=== PATIENT | female | born 1960 | race Caucasian/White ===

== ENCOUNTER 2021-05-28 10:20 | Outpatient (CLI) | payer OTHER, SELFPAY ==
--- NOTE | ~2021-05-28 | XR_ITS ---
EXAMINATION: XR lg joint inject/asp w image DATE: 05/28/2021 11:17 INDICATION: Unilateral primary osteoarthritis, left hip. TECHNIQUE: A time-out was performed to verify the patient's name, date of , and procedure to b e performed. The procedure including the risks, benefits, and alternatives was discussed with the pat ient. Risks discussed included bleeding and infection. The patient understood the risks and agreed to proceed. The skin overlying the left hip joint was prepped and draped in usual sterile fashion. An esthetic was administered with 1% lidocaine subcutaneously. A 22 G needle was advanced under fluoros copic guidance into the joint. Injection of 1 mL of Omnipaque 240 confirmed intra-articular position of the needle. Subsequently, injectate consisting of 5 mL 1% lidocaine and 2 mL 10 mg/mL Kenalog wa s instilled. The needle was removed and the entry site was cleaned and dressed. There were no immed iate complications. Fluoroscopy exposure time was 0.1 minutes. The total number of images was 2. FINDINGS: Real-time fluoroscopy demonstrates the needle in the left hip joint. Patient's pain prior t o procedure:01/12. Patient's pain following the procedure: 10/15. IMPRESSION: 1. Fluoroscopy guided left hip joint injection of local anesthetic and steroid with decrease in the p atient's presenting pain. Reviewed, dictated and finalized at location A. IMPRESSION: 1. Fluoroscopy guided left hip joint injection of local anesthetic and steroid with decrease in the patient's presenting pain.
== END 2021-05-28 10:21 | disposition home or self-care (01) ==
LOC: ANHIMG 10:26
PROVIDERS: PCP Family Medicine; Visit Provider Orthopaedic Surgery
DX: M16.12 Unilateral primary osteoarthritis, left hip (principal)
CPT/HCPCS: 20610; 77002; J3301; Q9966

== ENCOUNTER 2021-08-25 08:15 | Outpatient (RCR) | payer OTHER, SELFPAY ==
--- NOTE | 2021-06-01 09:42 | PTOPEVAL ---
PHYSICAL THERAPY EVALUATION AND PLAN OF CARE Thank you for referring Denisha Heck to [facility] [place].? The patient is scheduled to be seen for therapy? 1-2x/week for 4-6 weeks. Please review, sign, date and return this plan of care KEYONNA. I agree with and certify that the following plan of care is medically necessary. Referring Physician Date Attending Provider: Leonard Mercer MD Evaluation Evaluation Information Problem Diagnosis low back pain Onset years Subjective Information Denisha reports that she does Query Text:As Reported By Patient/ not feel like she has back Family pain at all, but that she feels pain in each hip (points to groin) and it will go down each leg - started on the left and has progressed to the right. Has a general achiness in both thighs but also has a sharp pain that goes down the leg that prevents her from putting weight on the left leg. Sleeping is the worst. Heating pad can be somewhat helpful. Self Report Pain Assessment Bilateral Hip(s) Reported Pain Level 5 Pain Description Aching,Sharp Pain Aggravating Factors Walking,Weight Bearing/ Standing Other Pain Aggravating Factors stretching the hips Pain Score Pain Score 5: Self Report Interventions Used Interventions Used By Clinicians Exercise Pain Relief Interventions Used By Heat,Medication Patient Cervical and Lumbar ROM Lumbar ROM Lumbar Flexion Active Floor Query Text:Hands to: Lumbar Extension (0-40) 12 Query Text:Active in Degrees Lumbar Comments right hip pulls with extension and left rotation Lower Extremity Range of Motion Hip Range of Motion Bilateral Hip Flexion Range of Motion - Passive 100 Hip Medial Rotation - Passive 10 Lower Extremity Muscle Strength Testing Hip Strength Bilateral Hip Flexion Strength 4 Good Hip Medial Rotation Strength 4 Good Hip Lateral Rotation Strength 4 Good Hip Strength Comments left hip abduction: 3/5, extension: 3+/5 right hip abduction: 4+/5, extension: 4-/5 Knee Strength Bilateral Knee Flexion Strength 4+ Good + Knee Extension Strength 4 Good Knee Strength Comments able to walk on heels and toes without difficulty a
--- NOTE | 2021-07-06 08:56 | PTOPEVAL ---
PHYSICAL THERAPY PROGRESS REPORT Thank you for referring Denisha Heck to [facility] [place].? The patient is scheduled to be seen for therapy? 2x/week for 4weeks. Please review, sign, date and return this plan of care KEYONNA. I agree with and certify that the following plan of care is medically necessary. Referring Physician Date Attending Provider: Leonard Mercer MD Progress Diagnosis low back pain Onset years Subjective Information Denisha reports that overall Query Text:As Reported By Patient/ things are much improved with Family continuing to have good days and bad days. Today it is sore along the lateral side of the left thigh. States that there is a definite decrease in freqeuncy of pain. Achiness is much better. The more streaking pain will not let up but it is less frequent. Self Report Pain Assessment Bilateral Hip(s) Reported Pain Level 4 Pain Description Aching Pain Aggravating Factors Walking,Weight Bearing/ Standing Other Pain Aggravating Factors stretching the hips Pain Score Pain Score 4: Self Report Additional Pain Score Comments anterior hip pain into the groin and adductors Interventions Used Interventions Used By Clinicians Electrical Stimulation,Heat, Manual Therapy Techniques Pain Relief Interventions Used By Heat,Medication Patient Cervical and Lumbar ROM Lumbar ROM Lumbar Flexion Active Floor Query Text:Hands to: Lumbar Extension (0-40) 12 Query Text:Active in Degrees Lumbar Comments soreness in left SIJ Lower Extremity Muscle Strength Testing Hip Strength Bilateral Hip Flexion Strength 4+ Good + Hip Medial Rotation Strength 4 Good Hip Lateral Rotation Strength 4 Good Hip Strength Comments left hip abduction: 3/5, extension: 3+/5 right hip abduction: 4+/5, extension: 4-/5 Knee Strength Bilateral Knee Flexion Strength 4+ Good + Knee Extension Strength 4+ Good + Muscle Length Testing Muscle Length Testing Piriformis w/Hip Flexion >90 Degrees (R) Moderate Tightness,(L) Moderate Tightness Left Hamstring Length -10 Query Text:(90 - 90 Position) Right Hamstring Length -15 Query Text:(90 - 90 Position) Right Prone Knee Flexor Muscle Length ( 110 degrees)
--- NOTE | 2021-08-13 09:33 | PTOPEVAL ---
PHYSICAL THERAPY PROGRESS REPORT Thank you for referring Denisha Heck to [facility] [place].? The patient is scheduled to be seen for therapy? 1x/week for 5 weeks. Please review, sign, date and return this plan of care KEYONNA. I agree with and certify that the following plan of care is medically necessary. Referring Physician Date Attending Provider: Leonard Mercer MD Progress Diagnosis low back pain Onset years Subjective Information Denisha was doing really well Query Text:As Reported By Patient/ but then she had Thanksgiving Family and then put up [place] decorations (alot of activity in 3 days). Now she has had increased symptoms and a new set of symptoms that run down the left leg that is especially bothersome at night . The last two days have been better but not great yet. Self Report Pain Assessment Bilateral Hip(s) Reported Pain Level 5 Greatest Pain Intensity 9 Pain Score Pain Score 5: Self Report Additional Pain Score Comments anterior hip pain into the groin and adductors Interventions Used Interventions Used By Clinicians Exercise,Manual Therapy Techniques Pain Relief Interventions Used By Heat,Medication Patient Cervical and Lumbar ROM Lumbar ROM Lumbar Flexion Active Floor Query Text:Hands to: Lumbar Extension (0-40) 15 Query Text:Active in Degrees Lumbar Comments soreness in left SIJ Lower Extremity Muscle Strength Testing Hip Strength Bilateral Hip Flexion Strength 4+ Good + Hip Strength Comments left hip abduction: 4-/5, extension: 4/5 right hip abduction: 4+/5, extension: 4-/5 Knee Strength Bilateral Knee Flexion Strength 5 Normal Knee Extension Strength 5 Normal Manual Therapy Manual Therapy Side Left Manual Therapy Location Hip Patient Position Supine Manual Therapy Treatment Soft Tissue Mobilization Treatment Comments -s/l manual hip flexor stretch Query Text:Include Technique and - Hooklying belted hip mobs Result of Technique for internal and anterior mobs on L side -left long leg pull - cavitation noted -s/l soft tissue mobilization to glutes and QL
--- NOTE | 2021-08-26 09:03 | PCPTNOTE ---
This treatment is being continued on visit number [id number]. Please see documentation on both accounts to view progress. Completed interventions, outcomes, and problems have been marked as Inactive to facilitate the copying of the Care plan routine for recurring accounts.
== END 2021-08-26 08:42 | disposition home or self-care (01) ==
LOC: ANHPT 08:15
PROVIDERS: PCP Family Medicine; Visit Provider Orthopaedic Surgery
DX: M54.16 Radiculopathy, lumbar region (principal)
CPT/HCPCS: 97014; 97110; 97140; 97162; G0283

== ENCOUNTER 2021-09-17 08:30 | Outpatient (RCR) | payer OTHER, SELFPAY ==
--- NOTE | 2021-08-26 09:04 | PCPTNOTE ---
The treatment documented on this account is a continuation of the treatment documented on visit number [id number]. Please see documentation on both accounts to view progress. The Plan of Care has been transitioned and updated within the new V#. I have addressed and agree with the discipline specific Problems, Interventions, and Goals for the current certification period. Completed interventions, outcomes, and problems have been marked as Inactive to facilitate the copying of the Care plan routine for recurring accounts.
--- NOTE | 2021-09-17 09:04 | PTOPEVAL ---
PHYSICAL THERAPY DISCHARGE NOTE Thank you for referring Denisha Heck to [facility].? Please review, sign, date and return this plan of care KEYONNA. I agree with and certify that the following plan of care is medically necessary. Referring Physician Date Attending Provider: Leonard Mercer MD Discharge Diagnosis low back pain Onset years Subjective Information Overall decreased symptoms in Query Text:As Reported By Patient/ the back. There does remain to Family be some symptoms in the lateral left thigh and knee. States that it will go away during the day but it is very sore in the morning Self Report Pain Assessment Left Hip(s) Reported Pain Level 2 Pain Score Pain Score 2: Self Report Interventions Used Interventions Used By Clinicians Exercise Lower Extremity Muscle Strength Testing Hip Strength Left Hip Flexion Strength 4+ Good + Hip Abduction Strength 4- Good - Hip Adduction Strength 4- Good - Palpation improved overall tissue quality - does continue to have some tightness at distal ITB on left Gait Pattern Assessment Gait Pattern Trendelenburg Gait Other Gait Observations left hip drop - able to correct when aware of it PT Clinical Summary Denisha is a 61 yo female presenting to outpatient physical therapy with c/o hip and thigh pain diagnosed as lumbar radiculopathy. Denisha has met her goals at this time . She is independent in HEP. We will d/c from PT at this time. PT Services Indicated No Rehabilitation Potential Good Potential Barriers to Goal Achievements Severity of Condition Support Requirements For Optimal None [place] Patient/Caregiver Informed of Benefits/ Yes Risks of Rehabilitation Patient/Caregiver Participated in Plan Yes of Care Patient/Caregiver Agreed with Problem Yes List/POC/Goals
== END 2021-09-18 08:24 | disposition home or self-care (01) ==
LOC: ANHPT 08:30
PROVIDERS: PCP Family Medicine; Visit Provider Orthopaedic Surgery
DX: M54.16 Radiculopathy, lumbar region (principal)
CPT/HCPCS: 97110; 97140

== ENCOUNTER 2023-09-11 17:46 | Emergency (ER) | payer MEDICARE, SELFPAY ==
[2023-09-11 18:08] VITALS: BP 135/52; PULSE 87; RESP 18; TEMP 36.1; O2SAT 98
[2023-09-11 18:12] VITALS: BP 135/52; PULSE 87; RESP 18; TEMP 36.1; O2SAT 98
--- NOTE | 2023-09-11 18:18 | ED.GENADULT ---
HPI - General Adult General Chief complaint: Upper Respiratory Infection Stated complaint: cough,lt earache,sorethroat Time Seen by Provider: 09/11/23 18:19 Source: patient Mode of arrival: ambulatory Limitations: no limitations History of Present Illness HPI narrative: 63-year-old female patient presents to [facility] with complaints of cold symptoms that has been going on for the past 9 days. Patient states that when her symptoms 1st started she has had some fevers body aches chills but that has since resolved. Patient states most of her symptoms have resolved but continues to have a cough, and sinus congestion. Patient states she has been taking [id number] vitamins including vitamin C as well as DayQuil and NyQuil for her symptoms. Denies any chest pain or shortness of breath. Denies any abdominal pain, nausea, vomiting or diarrhea. Related Data Home Medications Medication Instructions Recorded Confirmed aspirin 81 mg tablet,delayed 81 mg PO DAILY 05/20/21 08/04/21 release (Adult Aspirin Regimen) coenzyme Q10 200 mg capsule (Co 200 mg PO DAILY 05/20/21 08/04/21 Q-10) estradiol 0.075 mg/24 hr 1 patch transdermal 05/20/21 08/04/21 semiweekly transdermal patch omega-3 fatty acids 1,000 mg 1,000 mg PO DAILY 05/20/21 08/04/21 capsule (Fish Oil Concentrate) selenium 200 mcg capsule 200 mcg PO DAILY 05/20/21 08/04/21 Allergies Allergy/AdvReac Type Severity Reaction Status Date / Time No Known Allergies Allergy Verified 09/11/23 18:10 Review of Systems Review of Systems: CONSTITUTIONAL: Denies fever, chills, or sweats. EYES: Denies visual changes, redness, or discharge. ENT: Denies rhinorrhea, congestion, sore throat, or otalgia. CARDIOVASCULAR: Denies chest pain, palpitations, or edema. RESPIRATORY: Denies cough or dyspnea. GASTROINTESTINAL: Denies abdominal pain, nausea, vomiting, or diarrhea. GENITOURINARY: Denies dysuria or hematuria. SKIN: Denies rash or itching. MUSCULOSKELETAL: Denies back pain, joint pain, or myalgia. NEUROLOGIC: Denies headache, numbness, or weakness. PSYCHIATRIC: Denies anxiety or depression. [facility] Past Medical History Medical History Arthritis of lumbosacral spine Osteoarthritis of left hip Family History Family History Mother Hypertension DVT (deep venous thrombosis) Social History Social History Smoking status: Current every day smoker Tobacco type: cigarettes Alcohol intake: current Living arrangements: with roommate(s) Gender identity (if verbalized by the patient): Female Comments At the time of my signature I agree with nursing past medical history, surgical, social, and family history. There is no relevant family history pertinent to the presenting complaint. Exam Narrative: GENERAL: Well-appearing, well-nourished, and in no acute distress. HEAD: Normocephalic, atraumatic. EYES: PERRLA and EOMI. ENT: Nares With erythema and edema noted bilaterally, no rhinorrhea or epistaxis. Mucous membranes moist. posterior pharynx with no erythema, tonsillar enlargement, exudates or lesions present. Bilateral TMs are clear no erythema foreign bodies the canal. NECK: Supple. No lymphadenopathy CHEST: Clear to auscultation. No respiratory distress. HEART: Regular rate and rhythm. No murmur heard. Normal peripheral pulses. ABDOMEN: Soft, nontender, nondistended, normal active bowel sounds. EXTREMITIES: Normal range of motion. No edema. SKIN: Warm, dry, no rash. NEURO: No focal deficits. Alert and oriented x3. Course Course Level of Care: Express Care Visit Vital Signs Vital signs: Vital Signs Temperature 36.1 C L 09/11/23 18:08 Pulse Rate 87 09/11/23 18:08 Respiratory Rate 18 09/11/23 18:08 Blood Pressure 135/52 L 09/11/23 18:08 Pulse Oximetry 98 09/11/23
== END 2023-09-11 18:30 | disposition home or self-care (01) ==
PROVIDERS: Emergency Provider Nurse Practitioner Family; PCP Family Medicine
DX: J06.9 Acute upper respiratory infection, unspecified (principal); F17.210 Nicotine dependence, cigarettes, uncomplicated
CPT/HCPCS: 99213; G0463